=== PATIENT | female | born 1990 | race Caucasian/White ===

== ENCOUNTER 2021-10-18 22:35 | Day surgery (SDC) | payer OTHER, SELFPAY ==
--- NOTE | ~2021-10-18 | US_ITS ---
EXAMINATION: US ABDOMEN LIMITED CLINICAL INFORMATION: Gallstones. COMPARISON: None. TECHNIQUE: Real-time imaging of the right upper quadrant abdominal viscera. FINDINGS: PANCREAS: Visualized portions unremarkable. LIVER: Unremarkable. GALLBLADDER: Small gallstones measuring up to 1.3 cm as well as dependent sludge without mural thickening or pericholecystic fluid. COMMON BILE DUCT: Normal in caliber measuring 0.3 cm in diameter. RIGHT KIDNEY: 12.3. Increased medullary echotexture is seen. No hydronephrosis or larger renal stones. Color Doppler showed no abnormal vascular flow. FREE FLUID: None. US/US abdomen limited IMPRESSION: 1. Cholelithiasis without evidence for acute cholecystitis. 2. Increased medullary echotexture is nonspecific, but can be seen with medullary nephrocalcinosis. Correlate with patient history.
[2021-10-18 22:57] VITALS: BP 121/75; PULSE 69; RESP 16; TEMP 36.7; O2SAT 96; BMI 29.8
[2021-10-19] VITALS (13 sets, daily range): BP systolic 128–170; BP diastolic 69–89; PULSE 56–86; RESP 16–22; TEMP 36.2–37.6; O2SAT 95–100
[2021-10-19] MEDS: Ondansetron ODT 4 MG TAB.RAPDIS TRANSLINGU (00:54)
[2021-10-19 00:59] LABS: MANUAL DIFF FLAG NO
[2021-10-19 01:01] LABS: Basophils Absolute Auto 0.1 X10*3/uL (0.0-0.2); Basophils Percent Auto 0.4 % (0-2); Eosinophils Percent Auto 0.1 % (0-4); Hematocrit 38.2 % (37.0-47.0); Hemoglobin 12.9 g/dl (12.0-16.0); Imm Gran Abs Auto 0.07 X10*3/uL (0.00-0.03); Imm Gran Pct Auto 0.5 % (0.0-0.4); Lymphocytes Absolute Auto 2.9 X10*3/uL (1.2-4.9); Lymphocytes Percent Auto 19.9 % (20-40); Mean Corpuscular HGB Conc 33.8 g/dl (31.0-35.0); Mean Corpuscular Hemoglobin 27.8 pg (27.0-33.0); Mean Corpuscular Volume 82.3 fL (80.0-98.0); Mean Platelet Volume 9.4 fL (9.4-12.3); Monocytes Absolute Auto 0.9 X10*3/uL (0.1-1.2); Monocytes Percent Auto 6.4 % (2-11); Neutrophils Absolute Auto 10.4 x10*3/uL (2.0-8.3); Neutrophils Percent Auto 72.7 % (45-73); Platelet Count 359 X10*3/uL (160-400); Red Blood Count 4.64 X10*6/uL (4.20-5.50); Red Cell Distribution Width 13.1 % (11.0-16.0); White Blood Count 14.3 X10*3/uL (4.8-10.8)
[2021-10-19 01:19] LABS: COVID-19 Test Negative (Negative)
[2021-10-19 01:24] LABS: Alanine Aminotransferase 14 U/L (0-31); Albumin Level 4.5 g/dL (3.5-5.0); Alkaline Phosphatase 83 U/L (39-117); Anion Gap 17 (12-20); Aspartate Amino Transferase 16 U/L (5-31); Bilirubin Total 0.6 mg/dL (0.0-1.0); Blood Urea Nitrogen 13 mg/dL (9-16); Calcium 9.6 mg/dL (8.4-10.2); Carbon Dioxide 21 mmol/L (22-29); Chloride 107 mmol/L (96-108); Creatinine Clr Calc Pharmacy 116.5; Estimated Glomerular Filt Rate > 60; Glucose Random 97 mg/dL (60-115); Lipase 27 U/L (8-78); Potassium 3.3 mmol/L (3.3-5.1); Sodium 142 mmol/L (135-145)
--- NOTE | 2021-10-19 02:45 | ED.ABDPAIN ---
HPI - Abdominal Pain General Chief Complaint: Abdominal Pain Stated Complaint: gallstones, n/v Time Seen by Provider: 10/19/21 02:38 History of Present Illness HPI narrative: Patient is a 30-year-old female with a recent history of elective termination on October 17. History of migraine, depression, ovarian cysts. History of x2. Presents today with abdominal pain nausea vomiting. Patient has been seen at [facility]. Had ultrasound of the right upper quadrant done. It showed positive gallstone. There is no pericholecystic fluid. There is no gallbladder wall thickening. Common bile duct was 0.6 cm in size. However patient did have a positive white count. She did test positive for bacterial vaginosis. A CT scan of the abdomen pelvis was done. It did not show any gross evidence of obstruction, abscess, perforation. There is no appendicitis observed. Patient's lipase was normal. Patient went home had additional abdominal pain. Elected to come to [facility]. She claims she has not been able to eat for the last week. She has been vomiting. Unable to tolerate fluids. MD elicited complaint: abdominal pain Related Data Allergies Allergy/AdvReac Type Severity Reaction Status Date / Time walnut [WALNUT] Allergy Severe ANAPHYLAXIS Verified 10/18/21 23:00 walnuts Allergy Unknown hives Verified 10/18/21 23:00 Review of Systems Review of Systems Positive nausea vomiting positive abdominal pain Yes all other systems are reviewed and are negative [facility] Past Medical History Attestation statement: The following information was validated with the patient. Physical Exam ED Vital Signs: Vital Signs - 24 hr 10/18/21 22:57 10/19/21 02:19 Temperature 98.0 F 98.2 F Pulse Rate 69 61 Respiratory Rate 16 16 Blood Pressure 121/75 139/69 Pulse Oximetry 96 98 Oxygen Delivery Method Room Air Room Air BMI result Body Mass Index 29.8 Appearance: Alert. Oriented X3. No acute distress. Eyes: Pupils equal, round and reactive to light. ENT: Pharynx normal. Neck: Normal inspection. Neck supple. No lymph nodes noted. No crepitus CVS: Normal heart rate and rhythm. Pulses normal. Normal S1 and S2 Respiratory: No respiratory distress. Breath sounds normal. No Wheezing. No rales Abdomen: Soft and nontender. No rigidity. No distention. good BS x4 Skin: Skin warm and dry. Normal skin color. Normal skin turgor. Extremities: No lower extremity edema. Neurovascular intact to all extremities. No Lacerations. No Rash Neuro: Oriented X 3. No motor deficit. No sensory deficit. Moving all extermities. No slurred speech MDM - Abdominal Pain MDM Narrative Medical decision making narrative: CT scan done recently at [facility]. The copy report was obtained. There is no evidence of obstruction, abscess, perforation. Ultrasound was done recently at [facility]. There is no evidence for cholecystitis. Patient's white count elevated again of 14. LFTs are normal. Pain not consistent with cholecystitis. Will give additional nausea medication given patient failed outpatient therapy will admit patient for IV hydration monitoring. Patient claims she prior S a lot of product of conception. No longer having vaginal bleeding. She is in stable condition awaiting admission. Differential Diagnosis Differential diagnosis: Likely abdominal pain Medical Records Attestation: I reviewed the patient's medical records. Lab Data Attestation: I reviewed the patient's lab results. Result diagrams: 10/19/21 00:51 10/19/21 00:51 Labs: Lab Results 10/19/21 10/19/21 10/19/21 Range/Units 00:51 00:51 00:52 WBC 14.3 H (4.8-10.8) X10*3/uL RBC 4.64 (4.20-5.50) X10*6/uL Hgb 12.9 (12.0-16.0) g/dl Hct 38.2 (37.0-47.0) % MCV 82.3 (80.0-98.0) fL MCH 27.8 (27.0-33.0) pg MCHC 33.8 (31.0-35.0) g/dl RDW 13.1 (11.0-16.0) % Plt Count 359 (160-400) X10*3/uL MPV 9.4 (9.4-12.3) fL Immature Gran % (Auto) 0.5 H (0.0-0.4) % Neut % (Auto) 72.7 (45-73) % Lymph % (Auto) 19.9 L (20-40) % [place] % (Auto) 6.4 (2-11) % Eos % (Auto) 0.1 (0-4) % Baso % (Auto) 0.4 (0-2) % Lymph # (Auto) 2.9 (1.2-4.9) X10*3/uL [place] # (Auto) 0.9 (0.1-1.2) X10*3/uL Eos # (Auto) 0.0 (0.0-0.4) X10*3/uL Baso # (Auto) 0.1 (0.0-0.2) X10*3/uL Abs Immat Gran (auto) 0.07 H (0.00-0.03) X10*3/uL Absolute Neuts (auto) 10.4 H (2.0-8.3) x10*3/uL Absolute Nucleated RBC 0.000 (0.0-0.012) X10*3/uL Nucleated RBC % (auto) 0.0 (0.0-0.2) /100WBC Sodium 142 (135-145) mmol/L Potassium 3.3 (3.3-5.1) mmol/L Chloride 107 (96-108) mmol/L Carbon Dioxide 21 L (22-29) mmol/L Anion Gap 17 (12-20) BUN 13 (9-16) mg/dL Creatinine 0.77 (0.5-1.4) mg/dL Estim Creat Clear Calc 116.5 Estimated GFR > 60 Random Glucose 97 (60-115) mg/dL Calcium 9.6 (8.4-10.2) mg/dL Total Bilirubin 0.6 (0.0-1.0) mg/dL AST 16 (5-31) U/L ALT 14 (0-31) U/L Alkaline Phosphatase 83 (39-117) U/L Total Protein 8.0 (6.5-8.0) g/dL Albumin 4.5 (3.5-5.0) g/dL Lipase 27 (8-78) U/L COVID-19 (JERONIMO) Negative (Negative) COVID-19 Clin Com See Note Discharge Plan Discharge Clinical Impression: Abdominal pain Patient Disposition: Admitted As Inpatient
[2021-10-19] MEDS: HYDROmorphone HCl 0.5 MG/0.5 ML SYRINGE IVPUSH ×3 (03:01→11:27)
[2021-10-19] MEDS: ondansetron HCL 4 MG/2 ML VIAL IVPUSH ×4 (03:01→20:05)
[2021-10-19] MEDS: 0.9 % Sodium Chloride 1,000 ML 999 ML IV (03:02)
--- NOTE | 2021-10-19 04:39 | PC.NURSE ---
pt sleeping comfortably on stretcher, no apparent distress. equal chest rise and fall. call ferguson within reach. pending admission . will continue to monitor closely.
[2021-10-19 07:24] LABS: Appearance Urine CLOUDY; Color Urine YELLOW; Glucose Urine UA NEG (NEG); Leukocyte Esterase Urine NEG (NEG); Nitrite Urine NEG (NEG); UACC Culture Trigger NO; Urine Blood 2+ (NEG); Urine Ketones 15 MG/DL (NEG); Urine Protein NEG (NEG-TRACE)
[2021-10-19 07:51] LABS: Amorphous Sediment Urine 2+ /LPF; Bacteria Urine TRACE /LPF; Squamous Epithelial Cell Urine TRACE /LPF; WBC Urine 0-2 /HPF (0-4)
--- NOTE | 2021-10-19 08:42 | PHA.MEDREC ---
Pharmacy Consult ? Medication Reconciliation Pharmacy has completed the medication reconciliation. Patient reported medications. Reports she does not need her Control right now since she is on her period. Pilar Camejo, CasperD
[2021-10-19] MEDS: Lactated Ringers 1,000 ML 150 ML IVCONT (08:57)
--- NOTE | 2021-10-19 09:31 | P.HPGS_ITS ---
History of Present Illness History of Present Illness Date of Service: 10/19/21 Chief complaint: gallstones, n/v Narrative: Nicolette Olsen is a 30 year old female presenting with complaints of right upper quadrant abdominal pain, nausea, vomiting, anorexia of approximately 2 weeks duration. She reports being on a healthy diet for the last several months but developed the abdominal pain while exercising. She initially thought this was due to the exercise and later due to . She underwent chemical earlier this week which was successful but continues to have the abdominal pain. She was initially scheduled for laparoscopic cholecystectomy at [facility] but was subsequently discharged home. She continues to have the abdominal pain in the right upper quadrant and is unable to tolerate even liquids. Ultrasound the abdomen and pelvis reveals tenderness with palpation of the gallbladder. There are multiple gallstones within the gallbladder. No wall thickening is identified however[place] [address]. She is admitted to the surgical service for further management of her acute cholecystitis. Review of Systems Review of Systems: Yes all other systems are reviewed and are negative Constitutional: Constitutional: Denies chills, Denies fever(s), Denies headache(s), Reports poor appetite and Reports weakness ENT: Denies headache(s) Cardiovascular: Cardiovascular: Denies chest pain, Denies irregular heart rhythm, Denies palpitations and Denies dyspnea Respiratory: Respiratory: Denies cough, Denies excessive phlegm production and Denies dyspnea Gastrointestinal: Gastrointestinal: Reports abdominal pain, Denies bloating, Denies change in bowel habits, Denies constipation, Denies heartburn, Denies surya rrhea, Reports nausea and Reports vomiting Genitourinary: Genitourinary: Denies urinary frequency Musculoskeletal: Musculoskeletal: Denies back pain, Denies muscle weakness and Denies numbness Integumentary/Breasts: Skin/Breast: Denies changing lesions and Denies unusual bruising Neurologic: Denies headache(s), Denies numbness, Denies paresthesias and Reports weakness Psychiatric: Psychiatric: Denies anxiety and Denies depression Endocrine: Endocrine: Denies palpitations Hematologic/Lymphatic: Hematologic/Lymphatic: Denies lymphadenopathy ON LICENSE OF [facility] Social History Social History Advance Directives: No Advance Directives Information Provided: Yes Meds Allergies Allergy/AdvReac Type Severity Reaction Status Date / Time walnut [WALNUT] Allergy Severe ANAPHYLAXIS Verified 10/18/21 23:00 walnuts Allergy Unknown hives Verified 10/18/21 23:00 Active Medications: Current Medications Lactated Ringer's (Lr) 1,000 mls @ 150 mls/hr IVCONT .[id number] EAMON Last Admin: 10/19/21 08:57 Dose: 150 mls/hr Pharmacy Consult (Consult Rx Perform Med Rec) 1 each MISCELLANE ONCE PRN PRN Reason: Consult order Home Medications Medication Instructions Recorded Confirmed Last Taken Type Control 1 tab PO DAILY 10/19/21 10/19/21 Unknown History metoclopramide HCl 10 mg tablet 1 tab PO QID PRN Nausea 10/19/21 10/19/21 Unknown History Physical Exam Vital Signs: Vital Signs: Last Vital Signs Temp 98.1 F 10/19/21 07:28 Pulse 61 10/19/21 07:28 Resp 22 H 10/19/21 07:28 BP 136/82 10/19/21 07:28 Pulse Ox 99 10/19/21 07:28 O2 Del Method 10/19/21 07:28 BMI result Body Mass Index 29.8 Const: General: cooperative and no acute distress Nutritional Appearance: well nourished Orientation/consciousness: patient oriented x3 Limitations: no limitations HEENT: Head: Yes normocephalic and Yes atraumatic Ears: hearing grossly normal bilaterally Resp: Effort & Inspection: normal respiratory effort, no audible wheezes, no cough and no respiratory distress Cardio: Jugular venous distension: no JVD GI: Inspection: Yes normal to inspection Palpation (GI): Soft to palpation, Tenderness to palpation present (GI) in the RUQ and Greco's sign positive, no guarding and not rigid Percussion: Yes normal to percussion Auscultation: normal bowel sounds Rectal Exam - Female: deferred Skin: Other: Warm, dry, no rash Neuro: General: patient oriented x3 Extrem: General: Yes no clubbing, cyanosis or edema Results Results Labs: Short CBC 10/19/21 Range/Units 00:51 WBC 14.3 H (4.8-10.8) X10*3/uL Hgb 12.9 (12.0-16.0) g/dl Hct 38.2 (37.0-47.0) % Plt Count 359 (160-400) X10*3/uL BMP 10/19/21 00:51 Sodium 142 Potassium 3.3 Chloride 107 Carbon Dioxide 21 L BUN 13 Creatinine 0.77 Calcium 9.6 Liver Function 10/19/21 Range/Units 00:51 Total Bilirubin 0.6 (0.0-1.0) mg/dL AST 16 (5-31) U/L ALT 14 (0-31) U/L Alkaline Phosphatase 83 (39-117) U/L Albumin 4.5 (3.5-5.0) g/dL Urine 10/19/21 Range/Units 07:16 Urine Color YELLOW Urine Appearance CLOUDY Urine pH 7.0 (5.0-8.0) Ur Specific [place] 1.010 (1.005-1.025) Urine Protein NEG (NEG-TRACE) MG/DL Urine Glucose (UA) NEG (NEG) MG/DL Assessment and Plan (1) Acute cholecystitis due to biliary calculus: Status: Acute Plan 30-year-old female patient presenting with complaints of abdominal pain in the right upper quadrant associated with nausea and vomiting. The symptoms have been progressing over the past 2 weeks workup reveals gallstones within the gallbladder with tenderness with palpation of the right upper quadrant positive Greco sign. Findings are suggestive of acute cholecystitis due to cholelithiasis. I recommended laparoscopic or possible open cholecystectomy and after discussion of the procedure, risks, and alternatives, she consents to the surgery. She has been added onto the operative schedule for today. Quality Stroke Does the patient have a stroke diagnosis?: No VTE Prior VTE?: No VTE Risk Level:: Surgical - moderate VTE Device Contraindication: N/A - Device Ordered VTE Drug Contraindication: Treatment Not Indicated Procedures Date of Service Date of Service: 10/19/21
--- NOTE | 2021-10-19 13:43 | PC.NURSE ---
Urine HCG ordered per protocol as pt is of childbearing age and no history of Tubal ligation or hysterectomy. per Dr. Whitlock pt had undergone an on 10/16/21 and we do not need to obtain urine prior to Laporascopic Cholecystectomy.
--- NOTE | 2021-10-19 13:50 | PC.NURSE ---
dr. mas updated that pt. stated that [facility]. no hcg at this time. pt currently bleeding has pad on. iv was inserted in ER. flushed and patent in sss.
--- NOTE | 2021-10-19 15:15 | P.OP_ITS ---
Operative Note Operative Note Date of Service: 10/19/21 Narrative: Preoperative diagnosis: Acute cholecystitis Postoperative diagnosis: Same Procedure: Laparoscopic cholecystectomy Surgeon: Kirk Novak MD Photographic Engineer: no physician Anesthesia: General endotracheal Indications for procedure:30-year-old female patient presenting with 2 week history of abdominal pain in the epigastrium and right upper quadrant found to have gallstones on ultrasound. Patient was also found to have a tender gallbladder with palpation with the ultrasound probe consistent with acute cholecystitis. On examination patient is tender in the right upper quadrant with a positive Greco sign. Laboratories revealed WBC of 14 K. Operative findings: acutely inflamed gallbladder with edematous wall and adhesions to the transverse mesocolon. Specimen: gallbladder Estimated blood loss: 5 mL Complications: none Procedure details: Patient was brought to the OR and placed in a supine position. After administering general anesthesia the patient's abdomen was prepped with ChloraPrep and draped in a sterile fashion. Local anesthesia consisting of 0.5% Sensorcaine without epinephrine was infiltrated in a periumbilical region. A 5 mm incision was made above the umbilicus in a transverse fashion. The Veress needle was then inserted while elevating abdominal cavity with towel clips. After positive drop test the abdomen was insufflated to a pressure of 15 mm of mercury. The Veress needle was then removed and a 5 mm trocar inserted. The camera was inserted in the abdomen explored. A 12 mm trocar was then placed in the epigastrium. Two 5 mm trocars placed in the right upper quadrant by the public services assistant. The patient was placed in reverse Trendelenburg positioning and rotated to the left. The gallbladder was grasped with the fundus and retracted cephalad by the public services assistant. The infundibulum was then grasped and retracted away from the liver bed, also by the public services assistant. The Dolphin dissected was then used by the surgeon to dissect the peritoneum off the infundibulum to reveal the junction with the cystic duct. Cystic artery was noted slightly medial and posterior to the cystic duct. After obtaining a critical view the cystic duct was doubly clipped and divided. The cystic artery was then doubly clipped and divided. The gallbladder was then dissected off the liver bed using electrocautery with an L hook. Hemostasis was assured all times using the electrocautery. When the gallbladder is completely dissected off the liver bed was placed in an Endo-Catch bag and brought out through the epigastric incision. The gallbladder was sent to pathology for further examination. The abdomen was then re-examined. The liver bed was irrigated and suctioned dry. No bleeding or bile leak could be identified. CO2 was then evacuated and all trocars removed. Fascia was closed at the epigastric incision using a [id number] Polysorb suture. Skin was closed in all incisions using a subcuticular 4 0 Polysorb suture by both the surgeon and public services assistant. Sterile dressings consisting of Steri-Strips, 2 x 2 gauze, and Tegaderm were then applied. The patient tolerated the procedure well. Sponge instrument and needle counts reported as correct. The patient was transferred to PACU in stable condition.
[2021-10-19] MEDS: Acetaminophen 325 MG TABLET 650 MG PO (17:39)
[2021-10-19] MEDS: Dextrose 5 % and Lactated Ring 1,000 ML 125 ML IVCONT (18:38)
[2021-10-19] MEDS: 0.9 % Sodium Chloride Flush 3 ML SYRINGE IVFLUSH (18:39)
[2021-10-19] MEDS: oxyCODONE HCl Immed Release 5 MG TABLET PO (20:05)
[2021-10-20] VITALS (8 sets, daily range): BP systolic 124–158; BP diastolic 57–85; PULSE 56–66; RESP 12–20; TEMP 36.3–36.9; O2SAT 95–98
[2021-10-20] MEDS: Acetaminophen 325 MG TABLET 650 MG PO (00:05)
[2021-10-20] MEDS: Dextrose 5 % and Lactated Ring 1,000 ML 125 ML IVCONT ×3 (02:03→18:24)
--- NOTE | 2021-10-20 08:40 | P.PNGS_ITS ---
Subjective Subjective Date of Service: 10/20/21 Interval history: Patient is still sleepy this morning, ate a sandwich at around 01:00 o'clock this morning and denied any nausea or vomiting. She has some discomfort from the incisions. Physical Exam Vital Signs: Vital Signs: Last Vital Signs Temp 98.4 F 10/20/21 07:18 Pulse 66 10/20/21 07:18 Resp 20 10/20/21 07:18 BP 138/69 10/20/21 07:18 Pulse Ox 97 10/20/21 07:18 O2 Del Method 10/20/21 07:18 O2 Flow Rate 3 10/19/21 15:32 BMI result Body Mass Index 29.8 Const: General: healthy appearing and well developed Nutritional Appearance: well nourished Orientation/consciousness: patient oriented x3 Limitations: no limitations Resp: Effort & Inspection: normal respiratory effort, no audible wheezes, no cough and no respiratory distress GI: Other: Soft and nondistended. Trocar incisions are clean and intact. Neuro: General: patient oriented x3 Extrem: Other: No edema Objective Data Active Medications Acetaminophen (Acetaminophen 325 Mg Tablet) 650 mg PO Q6H PRN PRN Reason: Pain, Mild (Pain Scale 1-3) Last Admin: 10/20/21 00:05 Dose: 650 mg Documented By: ALCON Fentanyl (Fentanyl Citrate/Pf 100 Mcg/2 Ml Vial) 50 mcg IVPUSH Q5M PRN; Protocol PRN Reason: Pain, Severe (Pain Scale 7-10) Hydromorphone HCl (Hydromorphone Hcl 0.5 Mg/0.5 Ml Syringe) 0.5 mg IVPUSH Q4H PRN; Protocol PRN Reason: Pain, Severe (Pain Scale 7-10) Last Admin: 10/19/21 11:27 Dose: 0.5 mg Documented By: JAH Dextrose/Lactated Ringer's ([id number]) 1,000 mls @ 125 mls/hr IVCONT .Q8H EAMON Last Admin: 10/20/21 02:03 Dose: 125 mls/hr Documented By: ALCON Magnesium Hydroxide (Milk Of Magnesia 30 Ml Oral.Susp) 30 ml PO DAILY PRN PRN Reason: Constipation Ondansetron HCl (Ondansetron Hcl 4 Mg/2 Ml Vial) 4 mg IVPUSH QID PRN PRN Reason: Nausea Last Admin: 10/19/21 20:05 Dose: 4 mg Documented By: MITCH Ondansetron HCl (Ondansetron Hcl 4 Mg/2 Ml Vial) 4 mg IVPUSH ONCE PRN PRN Reason: Nausea and Vomiting Oxycodone HCl (Oxycodone Hcl Immed Release 5 Mg Tablet) 5 mg PO ONCE PRN PRN Reason: Pain, Severe (Pain Scale 7-10) Oxycodone HCl (Oxycodone Hcl Immed Release 5 Mg Tablet) 5 mg PO Q4H PRN PRN Reason: Pain, Moderate (Pain Scale 4-6 Last Admin: 10/19/21 20:05 Dose: 5 mg Documented By: MITCH Pharmacy Consult (Consult Rx Perform Med Rec) 1 each MISCELLANE ONCE PRN PRN Reason: Consult order Sodium Chloride (0.9 % Sodium Chloride Flush 3 Ml Syringe) 3 ml IVFLUSH QSHIFT EAMON Last Admin: 10/20/21 00:10 Dose: Not Given Documented By: ALCON Non-Admin Reason: IV Running Zolpidem Tartrate (Zolpidem Tartrate 5 Mg Tablet) 5 mg PO BEDTIME PRN PRN Reason: Insomnia Labs CBC & Chem 7: 10/19/21 00:51 10/19/21 00:51 Procedures Date of Service Date of Service: 10/20/21 Progress Note: A&P Assessment and plan (1) Acute cholecystitis due to biliary calculus: Status: Acute Plan Pod 1 status post laparoscopic cholecystectomy for acute cholecystitis due to cholelithiasis. She is still very sleepy postop but did tolerate some food earlier this morning. She may be ready for discharge to home later on today. She should avoid fatty/fried foods for approximately 1 month and avoid lifting greater than 10 lb for the next 2 weeks. She should follow up my office in a pproximately 1 week after discharge for wound check. Time Spent With Patient Time: Total time spent is greater than 50% in coordination of care (as documented) at patient's floor/unit and/or counseling patient: Quality Stroke Does the patient have a stroke diagnosis?: No VTE Prior VTE?: No VTE Risk Level:: Surgical - moderate VTE Device Contraindication: N/A - Device Ordered VTE Drug Contraindication: Treatment Not Indicated
[2021-10-20] MEDS: HYDROmorphone HCl 0.5 MG/0.5 ML SYRINGE IVPUSH (08:55)
[2021-10-20] MEDS: ondansetron HCL 4 MG/2 ML VIAL IVPUSH (08:56)
[2021-10-20] MEDS: Milk of Magnesia 30 ML ORAL.SUSP PO (09:04)
--- NOTE | 2021-10-20 16:24 | PC.NURSE ---
N/Vomiting this am , made aware added phenegren IV to PRN. GIven per orders. positive results.
[2021-10-21] MEDS: Dextrose 5 % and Lactated Ring 1,000 ML 125 ML IVCONT ×3 (02:09→20:49)
[2021-10-21 03:28] VITALS: BP 159/87; PULSE 68; RESP 16; TEMP 37.3; O2SAT 97
[2021-10-21] MEDS: HYDROmorphone HCl 0.5 MG/0.5 ML SYRINGE IVPUSH ×2 (06:45→18:44)
--- NOTE | 2021-10-21 08:23 | PM.PNGS ---
Subjective Subjective Date of Service: 10/21/21 Interval history: Patient developed nausea and vomiting yesterday. Feels this is related to anesthesia effects. Feels somewhat improved today although she has not eaten significantly since the nausea and vomiting episode. Does not feel ready for discharge today. Physical Exam Vital Signs: Vital Signs: Last Vital Signs Temp 99.1 F 10/21/21 03:28 Pulse 68 10/21/21 03:28 Resp 16 10/21/21 03:28 BP 159/87 H 10/21/21 03:28 Pulse Ox 97 10/21/21 03:28 O2 Del Method 10/21/21 03:28 O2 Flow Rate 3 10/19/21 15:32 BMI result Body Mass Index 29.8 Const: General: healthy appearing and well developed Nutritional Appearance: well nourished Orientation/consciousness: patient oriented x3 Limitations: no limitations Resp: Effort & Inspection: normal respiratory effort, no audible wheezes, no cough and no respiratory distress GI: Other: Soft and nondistended. Trocar incisions are clean and intact. Neuro: General: patient oriented x3 Extrem: Other: No edema Objective Data Active Medications Acetaminophen (Acetaminophen 325 Mg Tablet) 650 mg PO Q6H PRN PRN Reason: Pain, Mild (Pain Scale 1-3) Last Admin: 10/20/21 00:05 Dose: 650 mg Documented By: ALCON Fentanyl (Fentanyl Citrate/Pf 100 Mcg/2 Ml Vial) 50 mcg IVPUSH Q5M PRN; Protocol PRN Reason: Pain, Severe (Pain Scale 7-10) Hydromorphone HCl (Hydromorphone Hcl 0.5 Mg/0.5 Ml Syringe) 0.5 mg IVPUSH Q4H PRN; Protocol PRN Reason: Pain, Severe (Pain Scale 7-10) Last Admin: 10/21/21 06:45 Dose: 0.5 mg Documented By: MALICK Dextrose/Lactated Ringer's (D5lr) 1,000 mls @ 125 mls/hr IVCONT .Q8H [facility] Last Admin: 10/21/21 02:09 Dose: 125 mls/hr Documented By: MALICK Promethazine HCl 6.25 mg/ (Sodium Chloride) 50.25 mls @ 201 mls/hr IV Q6H PRN PRN Reason: Nausea and Vomiting Last Infusion: 10/21/21 06:22 Dose: 0 mls/hr Documented By: MALICK Magnesium Hydroxide (Milk Of Magnesia 30 Ml Oral.Susp) 30 ml PO DAILY PRN PRN Reason: Constipation Last Admin: 10/20/21 09:04 Dose: 30 ml Documented By: BALTAZAR Ondansetron HCl (Ondansetron Hcl 4 Mg/2 Ml Vial) 4 mg IVPUSH QID PRN PRN Reason: Nausea Last Admin: 10/20/21 08:56 Dose: 4 mg Documented By: BALTAZAR Ondansetron HCl (Ondansetron Hcl 4 Mg/2 Ml Vial) 4 mg IVPUSH ONCE PRN PRN Reason: Nausea and Vomiting Oxycodone HCl (Oxycodone Hcl Immed Release 5 Mg Tablet) 5 mg PO ONCE PRN PRN Reason: Pain, Severe (Pain Scale 7-10) Oxycodone HCl (Oxycodone Hcl Immed Release 5 Mg Tablet) 5 mg PO Q4H PRN PRN Reason: Pain, Moderate (Pain Scale 4-6 Last Admin: 10/19/21 20:05 Dose: 5 mg Documented By: MITCH Pharmacy Consult (Consult Rx Perform Med Rec) 1 each MISCELLANE ONCE PRN PRN Reason: Consult order Sodium Chloride (0.9 % Sodium Chloride Flush 3 Ml Syringe) 3 ml IVFLUSH [facility] Last Admin: 10/21/21 00:03 Dose: Not Given Documented By: MALICK Non-Admin Reason: IV Running Zolpidem Tartrate (Zolpidem Tartrate 5 Mg Tablet) 5 mg PO BEDTIME PRN PRN Reason: Insomnia Labs CBC & Chem 7: 10/19/21 00:51 10/19/21 00:51 Procedures Date of Service Date of Service: 10/21/21 Progress Note: A&P Assessment and plan (1) Intractable cyclical vomiting with nausea: Status: Acute (2) Acute cholecystitis due to biliary calculus: Status: Acute Plan Patient once again is developed nausea and vomiting postoperatively which may be related to anesthesia. Her wounds are clean, dry, and intact without evidence of infection. She was able to tolerate some grapes this morning without nausea or vomiting. Will need to continue to observe today possible discharge in a.m. tomorrow if tolerating regular diet. Time Spent With Patient Time: Total time spent is greater than 50% in coordination of care (as documented) at patient's floor/unit and/or counseling patient: Quality Stroke Does the patient have a stroke diagnosis?: No VTE Prior VTE?: No VTE Risk Level:: Surgical - moderate VTE Device Contraindication: N/A - Device Ordered VTE Drug Contraindication: Treatment Not Indicated
[2021-10-21 08:57] VITALS: BP 157/84; PULSE 65; RESP 16; TEMP 37; O2SAT 98
[2021-10-21 12:23] VITALS: BP 153/85; PULSE 86; RESP 16; TEMP 36.8; O2SAT 97
--- NOTE | 2021-10-21 15:57 | MHC.CM.PN ---
PT REPORT SHE LIVES WITH HER BOYFRIEND AND CHILDREN, AGES 9 AND 6. 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 DCP IS HOME WITH NO SERVICES FAMILY TO TRANSPORT
[2021-10-21 16:00] VITALS: BP 165/98; PULSE 82; RESP 16; TEMP 36.6; O2SAT 97
[2021-10-21] MEDS: ondansetron HCL 4 MG/2 ML VIAL IVPUSH (16:26)
[2021-10-21] MEDS: 0.9 % Sodium Chloride Flush 3 ML SYRINGE IVFLUSH (16:26)
[2021-10-21 19:19] VITALS: BP 147/86; PULSE 66; RESP 16; TEMP 36.9; O2SAT 98
[2021-10-22] VITALS: BP 148/86; PULSE 71; RESP 16; TEMP 36.6; O2SAT 91
[2021-10-22] MEDS: HYDROmorphone HCl 0.5 MG/0.5 ML SYRINGE IVPUSH ×2 (03:27→07:59)
[2021-10-22 04:00] VITALS: BP 149/81; PULSE 67; RESP 16; TEMP 36.2; O2SAT 98
[2021-10-22 06:52] VITALS: BP 144/71; PULSE 63; RESP 16; TEMP 36.6; O2SAT 97
--- NOTE | 2021-10-22 08:41 | P.PNGS_ITS ---
Subjective Subjective Date of Service: 10/22/21 <JACOB Guzman - Last Filed: 10/22/21 08:54> 10/22/21 <Kirk Novak MD - Last Filed: 10/22/21 15:55> Interval history: Pt reports continued nausea this morning. Was able to tolerate some watermelon and grapes yesterday. Trying to drink liquids this morning. Zofran not helping, promethazine providing relief. Pain is controlled on Dilaudid. Ambulating and voiding without difficulty. Passing flatus, had a BM last night. <JACOB Guzman - Last Filed: 10/22/21 08:54> Physical Exam Vital Signs: Vital Signs: Last Vital Signs Temp 97.8 F 10/22/21 06:52 Pulse 63 10/22/21 06:52 Resp 16 10/22/21 06:52 BP 144/71 H 10/22/21 06:52 Pulse Ox 97 10/22/21 06:52 O2 Del Method 10/22/21 06:52 O2 Flow Rate 3 10/19/21 15:32 BMI result Body Mass Index 29.8 <JACOB Guzman - Last Filed: 10/22/21 08:54> Const: General: cooperative and no acute distress <JACOB Guzman - Last Filed: 10/22/21 08:54> Resp: Effort & Inspection: normal respiratory effort <JACOB Guzman - Last Filed: 10/22/21 08:54> Auscultation: clear to auscultation bilaterally <JACOB Guzman - Last Filed: 10/22/21 08:54> Cardio: Rate: regular rate <JACOB Guzman - Last Filed: 10/22/21 08:54> Rhythm: regular rhythm <JACOB Guzman - Last Filed: 10/22/21 08:54> GI: Other: abdomen soft, ND, appropriately tender, dressings C/D/I <JACOB Guzman - Last Filed: 10/22/21 08:54> Objective Data Active Medications Acetaminophen (Acetaminophen 325 Mg Tablet) 650 mg PO Q6H PRN PRN Reason: Pain, Mild (Pain Scale 1-3) Last Admin: 10/20/21 00:05 Dose: 650 mg Documented By: ALCON Hydromorphone HCl (Hydromorphone Hcl 0.5 Mg/0.5 Ml Syringe) 0.5 mg IVPUSH Q4H PRN; Protocol PRN Reason: Pain, Severe (Pain Scale 7-10) Last Admin: 10/22/21 07:59 Dose: 0.5 mg Documented By: PATRICE Promethazine HCl 6.25 mg/ (Sodium Chloride) 50.25 mls @ 201 mls/hr IV Q6H PRN PRN Reason: Nausea and Vomiting Last Infusion: 10/22/21 05:14 Dose: 0 mls/hr Documented By: MALICK Dextrose/Lactated Ringer's (D5lr) 1,000 mls @ 125 mls/hr IVCONT .Q8H [facility] Last Admin: 10/22/21 04:52 Dose: Not Given Documented By: MALICK Non-Admin Reason: IV Running Magnesium Hydroxide (Milk Of Magnesia 30 Ml Oral.Susp) 30 ml PO DAILY PRN PRN Reason: Constipation Last Admin: 10/20/21 09:04 Dose: 30 ml Documented By: BALTAZAR Ondansetron HCl (Ondansetron Hcl 4 Mg/2 Ml Vial) 4 mg IVPUSH QID PRN PRN Reason: Nausea Last Admin: 10/21/21 16:26 Dose: 4 mg Documented By: BOB Oxycodone HCl (Oxycodone Hcl Immed Release 5 Mg Tablet) 5 mg PO Q4H PRN PRN Reason: Pain, Moderate (Pain Scale 4-6 Last Admin: 10/19/21 20:05 Dose: 5 mg Documented By: MITCH Pharmacy Consult (Consult Rx Perform Med Rec) 1 each MISCELLANE ONCE PRN PRN Reason: Consult order Sodium Chloride (0.9 % Sodium Chloride Flush 3 Ml Syringe) 3 ml IVFLUSH [facility] Last Admin: 10/22/21 07:51 Dose: Not Given Documented By: PATRICE Non-Admin Reason: IV Running Zolpidem Tartrate (Zolpidem Tartrate 5 Mg Tablet) 5 mg PO BEDTIME PRN PRN Reason: Insomnia <JACOB Guzman - Last Filed: 10/22/21 08:54> Labs CBC & Chem 7: : 10/19/21 00:51 10/19/21 00:51 <JACOB Guzman - Last Filed: 10/22/21 08:54> Procedures Date of Service Date of Service: 10/22/21 <JACOB Guzman - Last Filed: 10/22/21 08:54> Progress Note: A&P Assessment and plan (1) Acute cholecystitis due to biliary calculus: Status: Acute <JACOB Guzman - Last Filed: 10/22/21 08:54> (2) Intractable cyclical vomiting with nausea: Status: Acute <JACOB Guzman - Last Filed: 10/22/21 08:54> Assessment and Plan: 30 year old female s/p lap diego for biliary colic, recent chemical . Persistent N/V postop. Plan: Continue regular diet as tolerated Nausea control PRN Pain control PRN Encouraged ambulation, IS Hospitalist consult for assistance with medical management Discussed with Dr. Novak. <JACOB Guzman - Last Filed: 10/22/21 08:54> 30 year old female s/p lap diego for biliary colic, recent chemical . Persistent N/V postop. Plan: Continue regular diet as tolerated Nausea control PRN Pain control PRN Encouraged ambulation, IS Hospitalist consult for assistance with medical management Discussed with Dr. Novak. Patient seen and examined. I agree with the above assessment and plan. She continues to report nausea, but is feeling improved today. She seems to develop the nausea in the evening therefore will continue to monitor her recovery. Patient also noted to have elevated BP yesterday. Appreciate hospitalist input. <Kirk Novak MD - Last Filed: 10/22/21 15:55> Time Spent With Patient Time: Total time spent is greater than 50% in coordination of care (as documented) at patient's floor/unit and/or counseling patient: <JACOB Guzman - Last Filed: 10/22/21 08:54> Quality Stroke Does the patient have a stroke diagnosis?: No <JACOB Guzman - Last Filed: 10/22/21 08:54> VTE Prior VTE?: No <JACOB Guzman - Last Filed: 10/22/21 08:54> VTE Risk Level:: Surgical - moderate <JACOB Guzman - Last Filed: 10/22/21 08:54> VTE Device Contraindication: N/A - Device Ordered <JACOB Guzman - Last Filed: 10/22/21 08:54> VTE Drug Contraindication: Treatment Not Indicated <JACOB Guzman - Last Filed: 10/22/21 08:54>
--- NOTE | 2021-10-22 08:55 | P.CONHOSP_ITS ---
History of Present Illness Data of Consult Service Date: 10/22/21 Primary Care Provider: Unknown Physician HPI Reason for consult: Medical mgmt This is a 30 year old female with no significant PMH who is admitted post-op after lap diego. The patient, who recently had a chemical , reports persistent RUQ pain, nausea and vomiting for several weeks prior to the surgery. She reports being seen at [facility] on several occasions but was told that her symptoms were related to . Medical consult requested for medical mgmt. Review of Systems Review of Systems: negative except HPI PMFSH Cognitive capacity: denies any prior medical problems Family History (Updated 10/22/21 @ 08:59 by Mitul Aden MD) Other Diabetes mellitus Pertinent family history: Mother has DM, asthma, s/p cholecyestcomy Social History (Updated 10/22/21 @ 08:59 by Mitul Aden MD) Household Members: Spouse Housing: House Alcohol intake: never Patient Tobacco Use Status: Never used Tobacco Use of substances other than those prescribed or required for medical reasons: Yes Substance Use Type: Marijuana Substance Use Frequency: Occasionally Currently Displaying Signs/Symptoms of Drug Intoxication Withdrawal: No Any prior treatment program specific to substance use: No Have you been hit, kicked, punched, or otherwise hurt by someone within the past year? If so, by whom?: No Do you feel safe in your current relationship?: Yes Is there a partner from a previous relationship who is making you feel unsafe now?: No Are you made to feel afraid or neglected: No Are you DNR?: No Advance Directives: No Advance Directives Information Provided: Yes Do you have thoughts of harming others: None Do you have a plan to hurt others: No Plan Recently lost weight without trying: No Nutrition Risks: No Nutritional Risk Patient : No : No Poor oral hygiene: No service: Yes Current occupational status: employed Meds Allergies Allergy/AdvReac Type Severity Reaction Status Date / Time walnut [WALNUT] Allergy Severe ANAPHYLAXIS Verified 10/19/21 12:16 Active Medications: Current Medications Acetaminophen (Acetaminophen 325 Mg Tablet) 650 mg PO Q6H PRN PRN Reason: Pain, Mild (Pain Scale 1-3) Last Admin: 10/20/21 00:05 Dose: 650 mg Hydromorphone HCl (Hydromorphone Hcl 0.5 Mg/0.5 Ml Syringe) 0.5 mg IVPUSH Q4H PRN; Protocol PRN Reason: Pain, Severe (Pain Scale 7-10) Last Admin: 10/22/21 07:59 Dose: 0.5 mg Promethazine HCl 6.25 mg/ (Sodium Chloride) 50.25 mls @ 201 mls/hr IV Q6H PRN PRN Reason: Nausea and Vomiting Last Infusion: 10/22/21 05:14 Dose: Infused Dextrose/Lactated Ringer's (D5lr) 1,000 mls @ 125 mls/hr IVCONT .Q8H [facility] Last Admin: 10/22/21 04:52 Dose: Not Given Magnesium Hydroxide (Milk Of Magnesia 30 Ml Oral.Susp) 30 ml PO DAILY PRN PRN Reason: Constipation Last Admin: 10/20/21 09:04 Dose: 30 ml Ondansetron HCl (Ondansetron Hcl 4 Mg/2 Ml Vial) 4 mg IVPUSH QID PRN PRN Reason: Nausea Last Admin: 10/21/21 16:26 Dose: 4 mg Oxycodone HCl (Oxycodone Hcl Immed Release 5 Mg Tablet) 5 mg PO Q4H PRN PRN Reason: Pain, Moderate (Pain Scale 4-6 Last Admin: 10/19/21 20:05 Dose: 5 mg Pharmacy Consult (Consult Rx Perform Med Rec) 1 each MISCELLANE ONCE PRN PRN Reason: Consult order Sodium Chloride (0.9 % Sodium Chloride Flush 3 Ml Syringe) [facility] Last Admin: 10/22/21 07:51 Dose: Not Given Zolpidem Tartrate (Zolpidem Tartrate 5 Mg Tablet) 5 mg PO BEDTIME PRN PRN Reason: Insomnia Home Medications Medication Instructions Recorded Confirmed Last Taken Type Control 1 tab PO DAILY 10/19/21 10/19/21 Unknown History metoclopramide HCl 10 mg tablet 1 tab PO QID PRN Nausea 10/19/21 10/19/21 Unknown History Physical Exam Vital Signs and Narrative: Vital Signs: Last Vital Signs Temp 97.8 F 10/22/21 06:52 Pulse 63 10/22/21 06:52 Resp 16 10/22/21 06:52 BP 144/71 H 10/22/21 06:52 Pulse Ox 97 10/22/21 06:52 O2 Del Method 10/22/21 06:52 O2 Flow Rate 3 10/19/21 15:32 BMI result Body Mass Index 29.8 Const: Other: General - vomiting Cardiovascular - regular rate and rhythm, S1-S2 Lungs - normal respiratory effort, clear to auscultation bilaterally, no wheezing Abdomen - soft, nontender Extremities - no edema bilaterally Neuro - awake and alert, no focal deficits Results Labs CBC and Chem 7: 10/19/21 00:51 10/19/21 00:51 Assessment and Plan (1) Elevated BP without diagnosis of hypertension: Status: Acute Plan This is a 30 year old female with no significant PMH who is admitted under the general surgical services s/p emmy cortez. Medical consult requested for medical mgmt. 1. Elevated BP BP readings reviewed -- as high has 160s systolic (asymptomatic) She reports BP in the 110s-120s normally Suspected related to pain/acute illness Would monitor for now and hold off starting any anithyeprtensives 2. Abnormal u/s kidney ?Increased medullary echotexture is nonspecific, but can be seen with medullary nephrocalcinosis. Lytes + renal function wnl will need to f/u with PCP as an outpatient 3. Post-op Intractable n/v, possible gastritis continue anti-emetics will add IV pepcid as she is complaining of heartburn symptoms 4. S/P emmy cortez mgmt per primary team. Will follow as needed, please tigerconnect with any questions.
[2021-10-22] MEDS: Dextrose 5 % and Lactated Ring 1,000 ML 125 ML IVCONT (09:49)
[2021-10-22] MEDS: Famotidine/PF 20 MG/2 ML VIAL IVPUSH (09:49)
[2021-10-22 11:57] VITALS: BP 152/66; PULSE 75; RESP 18; TEMP 36.1; O2SAT 99
--- NOTE | 2021-10-22 15:23 | PM.DS ---
DS: Providers Provider Date of Service: 10/19/21 Date of discharge: 10/22/21 Primary care physician: Unknown Physician Consults: 10/19/21 09:21 Consult to General Surgery Stat Consulting Provider: Kirk Novak Reason for consultation: RUQ pain, gallstones Has provider been notified: Yes 10/21/21 16:42 Consult to Hospitalist Stat Consulting Provider: Hospitalist Reason For Exam: routine medical mangmnt DS: Diagnosis Discharge Diagnosis (1) Acute cholecystitis due to biliary calculus: Status: Acute (2) Elevated BP without diagnosis of hypertension: Status: Acute (3) Intractable cyclical vomiting with nausea: Status: Acute DS: Summary Hospital Course Hospital Course: Pt is a 30 year old female who presented to the ED on 10/19/2021 complaining of RUQ abdominal pain and N/V x 2 weeks. PMHx was significant for a recent chemical the week prior. In the ED pt underwent abdominal US which revealed tenderness with palpation of the gallbladder, and multiple gallstones within the gallbladder, without wall thickening.? Laboratories revealed elevated WBC of 14K.? She was admitted to the surgical service for further management of her acute cholecystitis. She was brought to the OR and underwent laparoscopic cholecystectomy. Postoperatively her diet was advanced. However she developed N/V and had difficulty tolerating adequate PO intake. She required the use of IV antiemetics. Hospitalist consultation was obtained on POD3 for assistance with management as pt had elevated BP during her hospital stay; this was thought to be due to recent illness and pain. Pt's nausea improved and she was eventually able to tolerate adequate PO intake. She was able to be discharged to home on POD3. Time Spent with Patient Time attestation: Total time spent providing and/or coordinating discharge services: Discharge coordination time: Less than 30 minutes Quality: Safe Use of Opioids Does Pt have an Active Cancer Diagnosis on the Problem List?: No Quality: Stroke Does the patient have a stroke diagnosis?: No Physical Exam Vital Signs: Vital Signs: Last Vital Signs Temp 97 F 10/22/21 11:57 Pulse 75 10/22/21 11:57 Resp 18 10/22/21 11:57 BP 152/66 H 10/22/21 11:57 Pulse Ox 99 10/22/21 11:57 O2 Del Method 10/22/21 11:57 O2 Flow Rate 3 10/19/21 15:32 BMI result Body Mass Index 29.8 DS: Data Data Completed and Pending Pending studies at discharge: Pending at discharge 10/19/21 14:49 Surgical [PTH] Routine Discharge Plan Discharge Patient Disposition: Home, Self-Care Referrals: Kirk Novak MD [Physician] - 1 Week Physician,Andrews Fowler [Primary Care Provider] - 1 Week Discharge Medications: New oxycodone 5 mg tablet 5 mg PO Q6H PRN (Reason: pain (scale score 7-10)) Qty: 15 0RF Rx Instructions: Partial Fill upon patient request. famotidine [Pepcid] 20 mg tablet 20 mg PO DAILY Qty: 30 1RF Continued metoclopramide HCl 10 mg tablet 1 tab PO QID PRN (Reason: Nausea) Control 1 tab PO DAILY Discharge Orders: Discharge Order (Routine); Ordered 10/22/21 Ordered By: Kirk Novak Patient Instructions: Low Fat Diet (DC), Laparoscopic Cholecystectomy (DC) Stand Alone Forms: Patient Portal Discharge page Activity Restrictions/Additional Instructions: No lifting > 10 pounds for 2 weeks Remain on low fat diet for 1 month No driving for one week Ice to the incision x 24 hours Remove dressing in 3 days Follow up in office in one week. Discharge Date/Time: 10/22/21 18:23
[2021-10-22 16:00] VITALS: BP 141/94; PULSE 86; RESP 16; TEMP 36.5; O2SAT 98
== END 2021-10-22 18:23 | disposition home or self-care (01) ==
LOC: HO.ED 10-19 13:22 → HO.S3 10-19 14:38 → HO.ED 10-19 17:18 → HO.S3 10-19 17:18
PROVIDERS: Emergency Medicine Emergency Medical Services; Emergency Provider Emergency Medicine; PCP Internal Medicine; Visit Provider Surgery
PROC: 0FT44ZZ Resection of Gallbladder, Percutaneous Endoscopic Approach (ICD-10-PCS; CPT 47562; principal; 2021-10-19 14:00)
DX: K80.12 Calculus of gallbladder with acute and chronic cholecystitis without obstruction (principal); K82.8 Other specified diseases of gallbladder; K91.0 Vomiting following gastrointestinal surgery; R03.0 Elevated blood-pressure reading, without diagnosis of hypertension; O04.89 (Induced) termination of pregnancy with other complications; O04.5 Genital tract and pelvic infection following (induced) termination of pregnancy; N83.10 Corpus luteum cyst of ovary, unspecified side; G43.909 Migraine, unspecified, not intractable, without status migrainosus; F41.1 Generalized anxiety disorder; F33.9 Major depressive disorder, recurrent, unspecified; F12.90 Cannabis use, unspecified, uncomplicated; Z20.822 Contact with and (suspected) exposure to COVID-19
CPT/HCPCS: 47562; 76705; 80053; 81001; 83690; 85025; 87635; 88304; 96361; 96374; 96375; 96376; 99285; J0131; J1100; J1170; J2250; J2405; J2550; J2795; J3010